=== PATIENT | female | born 1975 | race African-American/Black ===

== ENCOUNTER 2017-04-28 20:06 | Emergency (ER) | payer BC ==
[~2017-04-28] VITALS: Ht 162.6 cm; Wt 66.8 kg
[~2017-04-28 20:06] MED LIST changes: -ZIAC 5/6.25MG T1 TAB PO
[2017-04-28 20:19] VITALS: TEMP 97.8
[2017-04-28 20:43] LABS: BASO % 0.4 % (0.0-2.0); EOS # 0.2 (0.0-0.7); EOS % 1.7 % (0-4.0); GRAN # 6.9 (1.4-6.5); GRAN % 67.2 % (42.2-75.2); HEMOGLOBIN 13.8 g/dl (12.5-16.0); LYMPH # 2.5 (1.2-3.4); LYMPH % 24.7 % (20.0-51.0); MEAN CELL VOLUME 87 fl (80.0-100.0); MEAN CORPUSCULAR HEMOGLOBIN 29 pg (27.0-31.0); MEAN CORPUSCULAR HGB CONC 34 g/dl (33.0-37.0); MEAN PLATELET VOLUME 10.3 fl (7.4-10.4); MONO # 0.6 (0.1-0.6); MONO % 5.5 % (1.7-9.3); PLATELET COUNT 329 K/mm3 (130-400); RED BLOOD COUNT 4.74 M/mm3 (4.10-5.30); WHITE BLOOD COUNT 10.2 K/mm3 (4.8-10.8)
[2017-04-28 20:52] LABS: ADJUSTED CALCIUM 9.2 mg/dL (8.4-10.2); ALBUMIN 4.9 gm/dL (3.5-5.0); BILIRUBIN,TOTAL 0.3 mg/dL (0.0-1.0); CALCIUM 9.9 mg/dL (8.4-10.2); CREATININE, serum 0.62 mg/dL (0.52-1.25); POTASSIUM 3.8 mmol/L (3.4-5.0); TOTAL PROTEIN 8.2 gm/dL (6.4-8.2)
[2017-04-28] MEDS ORDERED: ZIAC 5/6.25MG T1 TAB PO (20:52)
[2017-04-28 21:06] LABS: TROPONIN-I 9.32 ng/mL (0.000-0.034)
[2017-04-28 21:39] LABS: PROTHROMBIN TIME 10.9 SECONDS (9.7-12.8)
[2017-04-28 21:42] LABS: PARTIAL THROMBOPLASTIN TIME 31.8 SECONDS (26.0-37.0)
[2017-04-28 23:09] VITALS: BP 152/96; PULSE 60
== END 2017-04-28 23:11 | disposition short-term general hospital (02) ==
LOC: COL.ER 20:06
PROVIDERS: Emergency Medicine
DX: I21.4 Non-ST elevation (NSTEMI) myocardial infarction (principal); Z87.59 Personal history of other complications of pregnancy, childbirth and the puerperium
CPT/HCPCS: J1644

== ENCOUNTER → 2017-04-28 | Outpatient (CLI) | payer BC ==
[~2017-04-28] MED LIST: AMOXICILLIN 50500 MG PO; CLARITIN 1010 MG/TAB PO; LANSINOH FOR BR1 OIN TP; LASIX 20MG TABL20 MG PO; LOPRESSOR 225 MG/TAB PO; LOVENOX 4040 MG/0.4 SQ; MACROBID 1100 MG/CAP; MOTRIN 600600 MG/TAB PO; NO HOME MEDICATIONS; PERCOCET 325 MG1 TA2 PO; PHENERGAN 25 TA25 MG PO; PHENERGAN25 MG RC; PRENATAL PLUS1 TA1 PO; PRENTAL 1 PLUS1 TAB PO; PREPARATION H30 GM RC; SENOKOT S 50 MG1 TAB PO; TRANDATE 200MG200 MG PO; TUCKS50%; UNKNOWN ANTIBIOTIC; ZESTRIL 10MG10 MG PO; ZIAC 5/6.25MG T1 TAB PO; ZOFRAN 4MG T4 MG/TAB PO; ZOFRAN ODT4 MG PO; ZOFRAN4 M1 PO
== END ==
LOC: ZCOL.LAB 15:50
DX: R07.9 Chest pain, unspecified (principal)

== ENCOUNTER 2017-05-13 15:58 | Inpatient (IN) | payer BC ==
[~2017-05-13] VITALS: Ht 160 cm; Wt 65.1 kg
[~2017-05-13 15:58] MED LIST changes: +ZIAC 5/6.25MG T1 TAB PO
[2017-05-13 16:28] LABS: BASO # 0.1 (0.0-0.2); BASO % 0.6 % (0.0-2.0); EOS # 0.2 (0.0-0.7); EOS % 2.7 % (0-4.0); GRAN # 5.1 (1.4-6.5); GRAN % 63.8 % (42.2-75.2); HEMATOCRIT 41.3 % (37.0-47.0); HEMOGLOBIN 13.7 g/dl (12.5-16.0); LYMPH # 2.2 (1.2-3.4); LYMPH % 28.3 % (20.0-51.0); MEAN CELL VOLUME 87 fl (80.0-100.0); MEAN CORPUSCULAR HEMOGLOBIN 29 pg (27.0-31.0); MEAN CORPUSCULAR HGB CONC 33 g/dl (33.0-37.0); MEAN PLATELET VOLUME 10.2 fl (7.4-10.4); MONO # 0.3 (0.1-0.6); MONO % 4.3 % (1.7-9.3); PLATELET COUNT 391 K/mm3 (130-400); RED BLOOD COUNT 4.75 M/mm3 (4.10-5.30); WHITE BLOOD COUNT 7.9 K/mm3 (4.8-10.8)
[2017-05-13 16:39] LABS: INR 1.1 (0.8-3.0)
[2017-05-13 16:48] LABS: ADJUSTED CALCIUM 9.7 mg/dL (8.4-10.2); ALBUMIN 4.9 gm/dL (3.5-5.0); BILIRUBIN,TOTAL 0.6 mg/dL (0.0-1.0); CALCIUM 10.4 mg/dL (8.4-10.2); CREATININE, serum 0.66 mg/dL (0.52-1.25); MAGNESIUM 2.2 mg/dL (1.6-2.3); POTASSIUM 4.1 mmol/L (3.4-5.0); TOTAL PROTEIN 8.6 gm/dL (6.4-8.2)
[2017-05-13 17:02] LABS: TROPONIN-I 0.061 ng/mL (0.000-0.034)
[2017-05-13 18:33] VITALS: O2SAT 100
[2017-05-13 18:34] VITALS: O2SAT 100
[2017-05-13 18:39] VITALS: BP 119/92; PULSE 64; TEMP 98.3
[2017-05-13 20:00] VITALS: BP 109/62; PULSE 66; TEMP 98.4
[2017-05-13] MEDS ORDERED: NITROSTAT0.4 MG/TAB (21:11)
[2017-05-13] MEDS ORDERED: COZAAR 25MG25 MG/TAB (21:13)
[2017-05-13] MEDS ORDERED: ZEBETA 5MG5 MG (21:13)
[2017-05-13] MEDS ORDERED: LIPITOR 40MG TA40 MG PO (21:17)
[2017-05-13] MEDS ORDERED: PLAVIX 75MG TAB75 MG PO (21:17)
[2017-05-13 22:00] VITALS: BP 109/66; PULSE 63
[2017-05-14] VITALS (7 sets, daily range): BP systolic 100–119; BP diastolic 63–73; PULSE 63–76; TEMP 98.2–99.1
[2017-05-14] MEDS ORDERED: ASPIRIN E.C. 8181 MG PO (12:33)
== END 2017-05-14 13:20 | disposition home or self-care (01) | DRG 310 ==
LOC: COL.ER 15:58 → ICU 17:35
PROVIDERS: Emergency Medicine
DX: R00.2 Palpitations (principal); I10 Essential (primary) hypertension; E78.5 Hyperlipidemia, unspecified; Z95.5 Presence of coronary angioplasty implant and graft
CPT/HCPCS: 99223-AI; J7030

== ENCOUNTER → 2020-04-01 | Outpatient (CLI) | payer BC ==
[~2020-04-01] MED LIST changes: +ASPIRIN E.C. 8181 MG PO; +COZAAR 25MG25 MG/TAB; +LIPITOR 40MG TA40 MG PO; +NITROSTAT0.4 MG/TAB; +PLAVIX 75MG TAB75 MG PO; +ZEBETA 5MG5 MG
== END ==
LOC: ZCOL.LAB 17:29
DX: L02.512 Cutaneous abscess of left hand (principal)

== ENCOUNTER → 2023-06-16 | Outpatient (CLI) | payer BC | LOC: MC.RAD 06:57 | DX: R92.8 Other abnormal and inconclusive findings on diagnostic imaging of breast (principal) ==